=== PATIENT | female | born 2000 | race Caucasian/White ===

== ENCOUNTER 2025-04-12 14:39 | Emergency (ER) | payer BC, OTHER, SELFPAY ==
--- NOTE | 2025-04-12 14:41 | ED.URI ---
HPI - URI/Sore Throat General Chief Complaint: Upper Respiratory Infection Stated Complaint: head congestion/cough Time Seen by Provider: 04/12/25 14:56 Source: patient, RN notes reviewed and old records reviewed Mode of arrival: ambulatory Limitations: no limitations History of Present Illness HPI Narrative: 25-year-old female presents to the [facility] with complaints of head congestion, cough for 10 days. Has tried multiple pldh-vbj-bdzhtiv medications with no relief. Denies fevers, chest pain, shortness of breath. Onset (ago): day(s) (10) Treatments prior to arrival: cold medicine Related Data Allergies Allergy/AdvReac Type Severity Reaction Status Date / Time Penicillins Allergy Severe Rash Verified 04/12/25 14:55 Review of Systems Review of Systems: All systems reviewed & are unremarkable except as noted in HPI and below Constitutional: Constitutional: Reports no additional constitutional complaints ENT: Reports as per HPI Cardiovascular: Cardiovascular: Reports no additional cardiovascular complaints, Denies chest pain and Denies dyspnea Respiratory: Respiratory: Reports as per HPI, Denies chest congestion, Reports cough and Denies dyspnea Musculoskeletal: Musculoskeletal: Reports no additional musculoskeletal complaints Integumentary/Breasts: Skin/Breast: Reports system reviewed and no additional complaints, except as docu PMFSH Comments At the time of my signature, I reviewed and agree with the nursing past medical, surgical, social, and family history. There is no relevant family history pertinent to the patient complaint. Exam Const: General: cooperative, no acute distress, well developed, alert, tired appearing, uncomfortable and well nourished Nutritional Appearance: well nourished Orientation/consciousness: patient oriented x3 Limitations: no limitations HENMT: Head: normal to inspection Ears: hearing grossly normal bilaterally, external ears normal, TM's normal bilaterally, EAC's normal, mastoids normal and no periauricular adenopathy Face and sinus: normal facial exam Mouth: Yes Normal oral and palatal mucosa present, Yes lip normal, Yes tongue normal and Yes moist mucous membranes Throat: posterior oropharynx normal, uvula midline, postnasal drainage and no uvular edema Eyes: General: appearance normal, both eyes and all related structures Alignment and Position: alignment normal Neck: Neck: normal visual inspection, full ROM, no lymphadenopathy and no meningeal signs Chest: Chest palpation & inspection: normal inspection of the chest Resp: Effort & Inspection: normal respiratory effort and able to speak in complete sentences Auscultation: clear to auscultation bilaterally, no crackles, no rales, no rhonchi and no wheezes Cardio: Rate: regular rate Skin: General skin exam: normal color and no rashes or lesions noted Neuro: General: patient oriented x3, gait normal, moves all extremities and no meningeal signs Cognition (Neuro): normal cognition Speech: normal speech Gait exam (Neuro): Normal gait present Extrem: General: normal to inspection, full ROM, capillary refill normal and normal gait Psych: Appearance: grossly normal and well kempt Mental Status: mental status grossly normal Speech and movement: Normal speech and movement present and Clear speech present Affect: normal affect Attitude: cooperative Course Course Level of Care: Express Care Visit Vital Signs Vital signs: Vital Signs Temperature 98.5 F 04/12/25 14:52 Pulse Rate 105 H 04/12/25 14:52 Respiratory Rate 18 04/12/25 14:52 Blood Pressure 124/78 04/12/25 14:52 Pulse Oximetry 100 04/12/25 14:52 Oxygen Delivery Room Air 04/12/25 14:52 Temperature 98.5 F 04/12/25 14:52 Pulse Rate 105 H 04/12/25 14:52 Respiratory Rate 18 04/12/25 14:52 Blood Pressure 124/78 04/12/25 14:52 Pulse Oximetry 100 04/12/25 14:52 Oxygen Delivery Room Air 04/12/25 14:52 reviewed MDM MDM Narrative Medical decision making narrative: Patient sitting comfortably in exam room. Patient 10 day history of sinus congestion, cough. Multiple bzkc-fnc-mqhcikg products tried. Patient's strep negative 2 to length of symptoms will cover with an antibiotic encourage patient to continue yvpu-nbq-dzplqtr products as well. Patient is appropriate for outpatient for outpatient treatment with follow-up Discharge instructions reviewed with patient, as well as provided in writing per nursing staff. The instructions also include specific and strict return/GO TO THE ER as well as f/u information. All questions have been answered, and the patient deny any further questions with discharge and discharge plan. Some parts of this dictation were generated by voice recognition software and may contain typographical and/or grammatical inaccuracies. Differential Diagnosis Differential Diagnosis: Differential diagnostic considerations for upper respiratory infection include upper respiratory infection, croup, otitis media, sinusitis, viral infection, bronchitis, influenza, pharyngitis, strep, uvulitis.? Lab Data [facility] Lab Attestation statement: I personally reviewed the patient's lab results. Labs: Lab Results 04/12/25 Range/Units 15:03 POC Grp A Strep Screen Negative (Negative) Reviewed Discharge Plan Discharge Clinical Impression: Sinusitis Qualifiers: Sinusitis location: pansinusitis Chronicity: acute Recurrence: not specified as recurrent Qualified Code(s): J01.40 - Acute pansinusitis, unspecified Patient Disposition: Home Condition: Stable Instructions: Antibiotic Form, Sinusitis (ED) Additional Instructions: Your rapid strep swab was negative today at [facility]. A throat culture will be sent to the laboratory for further testing. If the test is positive, you will receive a phone call within 48 hours and an appropriate antibiotic will be initiated at that time. It is very important to treat your symptoms. Drink plenty of water, Gatorade, Pedialyte, ice pops or Jell-O. -Alternate Tylenol and Motrin per package directions for fever or pain. You can alternate every 4 hours -Antihistamine medication such as Zyrtec/Claritin during the day can help improve symptoms. -doing daily nasal irrigations can help relieve pressure your sinuses. Things like a Neti pot -Use Flonase twice a day for 5 days then daily to help reduce the inflammation and dry up your sinuses. -You can also use Mucinex. Be sure to drink plenty of water with this medication at least 8 ounces with every dose and it is important to drink 8 to 10 glasses of water per day. Water is a natural decongestant -Eat and drink things that are easy to swallow, like tea or soup, or popsicles. -Oral rinses such as: Salt water gargles and/or may use topical anesthetic (eg. Chloraseptic spray) or lozenges to relieve dryness or throat pain). -Frequent hand washing or hand train gateman is one of the best ways to prevent spread of infection. -Using a vaporizer or humidifier at night will also help thin secretions and help with coughing up phlegm. -Follow up with primary care provider in 7-10 days if condition is not improving - For new or worsening symptoms go directly to the nearest ER Patient Language: Georgian Prescriptions: New doxycycline monohydrate 100 mg tablet 100 mg PO BID Qty: 14 0RF fluticasone propionate [24 Hour Allergy Relief] 50 mcg/actuation spray,suspension 2 spray intranasal DAILY Qty: 16 0RF Rx Instructions: administer into each nostril Follow-up/Referrals: Kinjal,MD Gerry [Primary Care Provider, Unknown] - 1 Week Stand Alone Forms: Work/School Release IP Time of Disposition: 15:11
[2025-04-12 14:52] VITALS: BP 124/78; PULSE 105; RESP 18; TEMP 36.9; O2SAT 100
--- OUTSIDE RECORDS SUMMARY | 2025-04-12 14:54 | XMS_ITS | Clinical Summary ---
Author Organization [facility] [place] [facility] [address] [facility] Address [address] [address] Care Team Providers Care Strike Planning Applications Name Role Phone Gerry Layton MD Primary Care Provider [phone] Kee Avery MD Unavailable [phone] Allergies Active Allergy Reactions Criticality Noted Date Comments Penicillins Rash Medium 02/14/2020 Medications ibuprofen (ADVIL,MOTRIN) 600 mg tablet Take 1 tablet (600 mg total) by mouth every 6 (six) hours as needed for pain 20 tablet 06/13/2023 Active midodrine (PROAMATINE) 5 mg tabletIndication s:POTS (postural orthostatic tachycardia syndrome) TAKE 1 TABLET BY MOUTH THREE TIMES A DAY 270 tablet 1 12/24/2024 Active Active Problems Problem Noted Date Diagnosed Date POTS (postural orthostatic tachycardia syndrome) 12/15/2024 Assessment & Plan (12/15/2024 5:57 PM CDT): Patient has symptoms concerning for pots, heart monitor was generally normal over the 2 day periods; had 1 episode of tachycardia and patient reports no physical activity during those 2 days Continue midodrine 5 mg t.i.d.; refer to cardiology for evaluation of possible tilting testing for diagnostic Family history of abnormal heart rhythm in fathe r 03/05/2023 Assessment & Plan (11/10/2024 1:11 PM CDT): Due to family history will do holter monitor. Will continue to monitor. Orders: 48 HR Holter Monitor; Future Family history of LA (myocardial infarction) Pelvic and perineal pain 02/26/2023 Assessment & Plan (02/26/2023 9:40 AM RECEIVING WEIGHER): Discussed differential diagnosis including ovarian cyst, PID, or endometriosis. Plan for pap with STD testing and repeat pelvic ultrasound. Await results. Consider treatment with combined OCP if thinking endometriosis. Possible consult with . Carpal tunnel syndrome of left wrist 12/27/2020 Assessment & Plan (12/27/2020 4:00 PM CDT): Patient has concerns of signs and symptoms consistent with carpal tunnel of left hand, including positive Phalen's and Tinel's testing Will get EMG to identify location of nerve injury, referral to Hand surgery Encouraged patient to continue with use of wrist brace to protect wrist especially at night while sleeping, use of nonsteroidal anti-inflammatories for pain relief, and reduce activity to protect to wrist from further injury Follow-up in approximately 6 weeks Claustrophobia 04/05/2020 Assessment & Plan (04/05/2020 8:55 AM RECEIVING WEIGHER): Patient has panic attacks when exposed to certain triggers such as tight fitting clothing such as safety harness is, and closed in rooms smaller than approximately 5 ft x 5 ft. Acrophobia 04/05/2020 Assessment & Plan (04/05/2020 8:56 AM RECEIVING WEIGHER): Patient has panic attacks when exposed to heights, patient is unable to identify specific height limitations, but likely anything higher than 10 ft, especially with limited support or difficult to visualize support such as with a scissor lift Generalized anxiety disorder with panic attacks 02/14/2020 Assessment & Plan (04/22/2023 8:24 AM RECEIVING WEIGHER): Stable, generally well controlled Would like to increase slightly Starting new job at [employer] and cutting back at [place] Increase Lexapro 20 mg daily Follow up 3 months Assessment & Plan (03/05/2023 2:07 PM RECEIVING WEIGHER): States that her stress level has been higher lately Has increased stress due to work in recently finding out about her family history of heart disease Start Lexapro 10 mg daily Follow up 6 weeks Assessment & Plan (06/09/2020 3:57 PM RECEIVING WEIGHER): Control is improving, patient reports CAITLYN is generally better, but still has episodes of anxiety and panic attacks -will add Valium prn for panic attacks; per patient panic attacks occur 1-2x per week Assessment & Plan (04/05/2020 8:57 AM RECEIVING WEIGHER): Patient has general anxiety, good control with Celexa 40 mg, but continues to have panic attacks under certain stressful situations, such as stacking boxes without appropriate support, with fear of collapse Assessment & Plan (02/14/2020 3:43 PM RECEIVING WEIGHER): Generally well controlled, patient reports decreased anxiety and rare panic attacks Most recent events related to specific phobias including claustrophobia and acrophobia Continue citalopram 40 mg Work accommodations filled out in order to limit exposure to heights and restrictive item Gastroesophageal reflux disease without esophagi tis 02/14/2020 Assessment & Plan (04/05/2020 8:58 AM RECEIVING WEIGHER): Stable, well controlled with famotidine 40 mg daily Assessment & Plan (02/14/2020 3:43 PM RECEIVING WEIGHER): Stable, well controlled Continue daily famotidine Immunizations Immunization Administration Dates Next Due DTaP, Unspecified 11/06/2004, 1,1999,08/06,1999 HPV, Quadrivalent 07/30/2012,03/27/2012,01/30/20 12 Hep B / HiB 04/11/2000,1999 Hep B, Unspecified 1999 Hib (PRP-T) 1999 IPV 11/06/2004, 1,1999,06/11 Influenza, Quadrivalent, Spl it, Preservative Free, Intramuscular 04/22/2023,01/29/2022,01/18/2021,12/30,01/05/2019,07/05/2015 Influenza, Trivalent, Preser vative Free, Intramuscular 01/30/2012 Influenza, Unspecified 12/27/2020(Deferr ed: Patient Refused),04/14/2020(Deferred: Patient Refused),01/13/2020,04/14/2018(Deferre d: Patient Refused) MMR 11/06/2004,04/11/2000 Meningococcal Conjugate (Menveo) 11/18/2016 Meningococcal MCV4P (Menactra) 01/30/2012 Tdap 04/22/2023,08/25/2019,07/09/2012 Varicella 01/30/2012,04/11/2000 Surgical History Surgery Date Site/Laterality Comments WISDOM TOOTH EXTRACTION 06/19/2020 COLONOSCOPY CARPAL TUNNEL RELEASE 02/06/2021 Left Release left carpal tunnel ANKLE SURGERY 08/30/2024 Right Medical History Medical History Date Comments Anxiety Depression Stomach acid Colitis Ovarian cyst GERD (gastroesophageal reflux disease) Last menstrual period (LMP) > 10 days ago 2020 regular cycles Obesity Hx of sprain of ankle R ankle, c hronic Family History Medical History Relation Name Comments Depression Brother Carlos Atrial fibrillation Father Deshaun Depression Father Deshaun Heart disease Father Deshaun Multiple sclerosis Father Deshaun Depression Mother Shirley Diabetes Mother Shirley Anxiety disorder Sister Rossi Bipolar disorder Sister Rossi Depression Sister Rossi Relation Name Status Comments Brother Carlos Alive Father Deshaun Alive Mother Shirley Alive Sister Rossi Alive Social History Tobacco Use Types Packs/Day Years Used Date Smoking Tobacco: Former Cigarettes 1 - 07/25/2020 Vaping Smokeless Tobacco: Never Tobacco Cessation:Counseling Given: Not Answered Comments:Quit cigarettes Alcohol Use Standard Drinks/Week Comments Yes 0 (1 standard drink = 0.6 oz pur e alcohol) occassional AUDIT-C Answer Date Recorded Q1: How often do you have a drink containing alc ohol? Never 01/24/2021 Average Number of Drinks Not on file 021 Q3: How often do you have si x or more drinks on one occasion? Never 01/24/2021 PHQ-2 Answer Date Recorded PHQ-2 Total Score (If total score is 3 or more points, staff should administer the PHQ-9) 0 12/15/2024 Personal Safety Answer Date Recorded Have you ever been in or are you currently in a harmful physical or emotional relationship or is someone making you feel afraid or unsafe? Denies 06/07/2024 Comments No Sex and Gender Information Value Date Recorded Sex Assigned at Not on file Legal Sex Female 3:37 PM CDT Gender Identity Female 06/27/2021 11:19 AM CDT Sexual Orientation Straight 06/27/2021 11 :19 AM CDT Obstetrics History Para Term AB IAB SAB Ectopic Multiple Livin g Live Births 0 0 0 0 0 0 0 0 0 0 0 Last Filed Vital Signs Vital Sign Reading Time Taken Comments Blood Pressure 100/60 12/15/2024 1:59 PM CDT Pulse 73 12/15/2024 1:59 PM CDT Temperature 36.7 C (98.1 F) 12/15/2024 1:59 PM CDT Respiratory Rate 16 12/15/2024 1:59 PM CDT Oxygen Saturation 98% 12/15/2024 1:59 PM CDT Inhaled Oxygen Concentration - - Weight 79.4 kg (175 lb) 12/15/2024 1:59 PM CDT Height 161.3 cm (5' 3.5) 12/15/2024 1:59 PM CDT Body Mass Index 30.51 12/15/2024 1:59 PM CDT Plan of Treatment Health Maintenance Due Date Last Done Comments Hepatitis C Screening 1999 Regular Well Visit/Exam 18-64 09/14/2022 09/14/2021, 09/08/2020 Cervical Cancer Screening 02/27/20242022, 09/14/2021, 09/08/2020 Influenza Vaccine (#1) 2024 , 01/29/2022, 01/18/2021, Additional history exists Depression Screening 12/15/2025 12/15/2024, 11/10/2024, 04/22/2023, Additional history exists DTaP/Tdap/Td Vaccine (9 - Td or Tdap) 04/22/2033 04/22/2023, 08/25/2019, 07/09/2012, Additional history exists Hepatitis B Screening Completed 04/11/2000 , 1999, 1999 Varicella Vaccines Completed 01/30/2012, 04/11/2000 HPV Vaccines Completed 07/30/2012, 03/14, 01/30/2012 Pneumococcal vaccine <65 Aged Out No longer eligible based on patient's age to complete this topic Procedures Procedure Name Priority Date/Time Associated Diagnosis Comments PAP, REFLEX HPV Routine 02/26/2023 9:18 AM RECEIVING WEIGHER Pelvic and perineal pain from Last 3 Months or Most Recently Relevant to Health Maintenance Results * Pap, reflex HPV (02/26/2023 9:18 AM RECEIVING WEIGHER) CLINICAL INFORMATION: Pelon Lozano Comment:None given LMP Pelon Lozano Comment:A Previous Pap Pelon Lozano Comment:NONE GIVEN Prev. Bx Pelon Lozano Comment:NONE GIVEN SOURCE: Pelon Lozano Comment:Cervix, Endocervix Pap, specimen adequacy Pelon Lozano Comment: Satisfactory for evaluation. Endocervical/transformation zone component present. Age and/or menstrual status not provided HPV interp Pelon Lozano Comment: Cytology Results: Negative for intraepithelial lesion or malignancy. COMMENTS Pelon Lozano Comment: This Pap test has been evaluated with computer assisted technology. [employer]ault Cashier Ken Ellison Comment: LMT, CT(ASCP) CT screening location: [facility] [place] [address] Comment Pelon Lozano Comment: EXPLANATORY NOTE: The Pap is a screening test for cervical cancer. It is not a diagnostic test and is subject to false negative and false positive results. It is most reliable when a satisfactory sample, regularly obtained, is submitted with relevant clinical findings and history, and when the Pap result is evaluated along with historic and current clinical information. Thin prep 02/26/2023 9:18 AM RECEIVING WEIGHER 02/27/2023 3:43 AM RECEIVING WEIGHER us Nayeli Uribe YOUTH MANAGER LAB CYTOLOGY ORDERABLES Fin al Result [facility] [address] [facility] [place] [id number] from Last 3 Months or Most Recently Relevant to Health Maintenance Insurance BLUE ACCESS OOS BLUE ACCESS [employer]OS WORK[employer] COMPENSATION GENERIC Care Teams Strike Planning Applications Relationship Specialty Start Date End Date Gerry Layton MD [address] [place] [address] PCP - General Family Medicine 02/09/20 Kee Avery MD [address] [place] [address] Consulting Physician Plastic Surgery 02/06/21
[2025-04-12 15:05] LABS: EDSTREPNEGPOS1 Negative (Negative)
== END 2025-04-12 15:21 | disposition home or self-care (01) ==
PROVIDERS: Emergency Provider Nurse Practitioner; PCP Hospitalist
DX: J01.40 Acute pansinusitis, unspecified (principal)
CPT/HCPCS: 87081; 87880; 99213; G0463